=== PATIENT | female | born 1995 | race Caucasian/White ===

== ENCOUNTER 2017-10-07 15:41 | Inpatient (IN) | payer BC ==
[2017-10-07] MEDS ORDERED: Sodium Chloride 0.9% 10 ML Syringe FLUSH PRN (15:58)
[2017-10-07] MEDS ORDERED: Ondansetron 4 MG Tab.DIS PO PRN (15:58)
[2017-10-07] MEDS ORDERED: Nalbuphine 20 MG/1 ML Amp IVPUSH PRN (15:58)
[2017-10-07] MEDS ORDERED: Oxytocin/Lactated Ringers 10 UNIT/1,000 ML BAG IV SCH (16:00)
[2017-10-07] MEDS ORDERED: Lactated Ringers 1,000 ML IV SCH (16:00)
--- NOTE | 2017-10-07 16:48 | PCM.SN ---
- Free Text/Narrative Note: Sergio is a 22-year-old 2 now para 2002 white female who was admitted on 10/07/2017 in a very active, precipitous labor. She has an ANGELINA of 10/24/2017 by early ultrasound and LMP. She very rapidly went to complete cervical dilation and delivered almost immediately after spontaneous rupture of membranes at 1613 hrs.. Delivered a viable, carrion, 3010 g (6 lbs. 10 oz.), 19 inches long female in a right occiput anterior position, over an intact perineum. The baby was placed on mom's abdomen and nose and mouth bulb suctioned. The cord was allowed to pulsate with delayed cord clamping. The cord was then clamped 2 by myself and was cut by the baby's grandmother. Cord blood was obtained. Pitocin was started to facilitate increase in uterine tone and decrease risk of bleeding. Evaluation of the perineum revealed no significant lacerations and no suturing was required. The placenta delivered at 1618 hrs. in a Bergman fashion, appeared intact and complete and was discarded per patient desire. Estimated blood loss was 100 mL. Patient plans to bottle feed. Condition: Good
[2017-10-07] MEDS ORDERED: Lanolin 100% Cream 7 GM Tube TOP PRN (16:52)
[2017-10-07] MEDS ORDERED: Benzocaine/Menthol 20%-0.5% Spray 56 GM Canister TOP PRN (16:52)
[2017-10-07] MEDS ORDERED: Witch Hazel Medicated Pads 100/Jar TOP PRN (16:52)
[2017-10-07] MEDS ORDERED: Acetaminophen 325 MG Tab PO PRN (16:52)
[2017-10-07] MEDS: Ibuprofen 600 MG Tab PO PRN ×2 (17:12→21:12)
[2017-10-08] MEDS: Ibuprofen 600 MG Tab PO PRN ×4 (03:31→17:16)
--- NOTE | 2017-10-08 07:17 | PCM.SN ---
- Free Text/Narrative Note: note: Patient is doing well in the period. Minimal lochia, voiding well, ambulated without problems. Nursing without concerns. Patient is afebrile, vital signs are stable Abdomen is flat, soft, uterus is below the umbilicus and is firm and nontender. Legs are nontender. Assessment: recovery going well. Plan: Routine care. Patient be discharged home within the next 24- 48 hours.
[2017-10-08] MEDS: Docusate Sodium 100 MG Cap PO PRN (12:11)
[2017-10-09] MEDS: Ibuprofen 600 MG Tab PO PRN (00:09)
[2017-10-09] MEDS: Docusate Sodium 100 MG Cap PO PRN (00:24)
--- NOTE | 2017-10-09 05:15 | PCM.DCSUM1 ---
Discharge Summary - Hospital Course Free Text/Narrative:: Sergio is a 22-year-old 2 now para 2002 white female who was admitted on 10/07/2017 in a very active, precipitous labor. She has an ANGELINA of 10/24/2017 by early ultrasound and LMP. She very rapidly went to complete cervical dilation and delivered almost immediately after spontaneous rupture of membranes at 1613 hrs.. Delivered a viable, carrion, 3010 g (6 lbs. 10 oz.), 19 inches long female in a right occiput anterior position, over an intact perineum. The baby was placed on mom's abdomen and nose and mouth bulb suctioned. The cord was allowed to pulsate with delayed cord clamping. The cord was then clamped 2 by myself and was cut by the baby's grandmother. Cord blood was obtained. Pitocin was started to facilitate increase in uterine tone and decrease risk of bleeding. Evaluation of the perineum revealed no significant lacerations and no suturing was required. The placenta delivered at 1618 hrs. in a Bergman fashion, appeared intact and complete and was discarded per patient desire. Estimated blood loss was 100 mL. Patient plans to bottle feed. patient is doing well. She is ambulating well. Voiding without concerns and has minimal lochia. She is bottle feeding. He is desiring discharge home. - Discharge Data Discharge Date: 10/09/17 Discharge Disposition: Home, Self-Care 01 Condition: Good - Patient Instructions Diet: Regular Diet as Tolerated Activity: As Tolerated (No intercourse or tampons until bleeding resolves) Driving: May Drive Today Showering/Bathing: May Shower (May take a bath) Notify Provider of: Fever, Increased Pain, Swelling and Redness, Nausea and/or Vomiting - Discharge Plan Home Medications: Home Meds Acetaminophen [Tylenol] 650 mg PO Q6H PRN #50 tablet 07/24/15 [Rx] Benzocaine/Menthol [Dermoplast Pain Relief [place]] 1 spray TOP ASDIRECTED PRN #1 canister 07/24/15 [Rx] Docusate Sodium [Colace] 100 mg PO BID PRN #50 cap 07/24/15 [Rx] Ibuprofen [Motrin] 200 - 600 mg PO Q6H PRN #50 tablet 07/24/15 [Rx] Witch Ana Laura [Tucks] 1 pad TOP ASDIRECTED PRN #50 pad 07/24/15 [Rx] - Discharge Summary/Plan Comment DC Time >30 min.: No Discharge Summary/Plan Comment: Discharge instructions: 1. Discharge home 2. Diet, activity and follow-up discussed with patient. Recommend nursing diet with increased calories and calcium. 3. Precautions given concern increased pain, bleeding, temperature, signs/ symptoms of DVT/PE. 4. Medications per home medication was printed, discussed with and given to the patient. 5. Return to clinic-[facility] in 2 weeks. Diagnosis: Term -delivered Condition: Good - Patient Data Vitals - Most Recent: Last Vital Signs Temp 36.6 C 10/09/17 04:21 Pulse 69 10/09/17 04:21 Resp 16 10/09/17 04:21 BP 105/64 10/09/17 04:21 Pulse Ox 100 10/09/17 04:21 Weight - Most Recent: 77.564 kg I&O - Last 24 hours: Intake & Output 10/08/17 10/08/17 10/09/17 14:59 22:59 06:59 Intake Total 120 Balance 120 Lab Results - Last 24 hrs: Laboratory Results - last 24 hr 10/08/17 Range/Units 06:05 WBC 10.48 H (3.98-10.04) K/mm3 RBC 3.81 L (3.98-5.22) M/mm3 Hgb 12.4 (11.2-15.7) gm/L Hct 36.4 (34.1-44.9) % MCV 95.5 H (79.4-94.8) fl MCH 32.5 H (25.6-32.2) pg MCHC 34.1 (32.2-35.5) g/dl RDW Std Deviation 43.0 (36.4-46.3) fL Plt Count 153 L (182-369) K/mm3 MPV 11.0 (9.4-12.3) fl Med Orders - Current: Current Medications Acetaminophen (Tylenol) 650 mg PO Q4H PRN PRN Reason: mild pain or fever Benzocaine/Menthol (Dermoplast Pain Relief [place]) 0 gm TOP ASDIRECTED PRN PRN Reason: Perineal Comfort Measure Last Admin: 10/07/17 17:12 Dose: 1 applic Docusate Sodium (Colace) 100 mg PO BID PRN PRN Reason: Constipation Last Admin: 10/09/17 00:24 Dose: 100 mg Emollient Ointment (Lansinoh Hpa) 0 gm TOP ASDIRECTED PRN PRN Reason: Sore Nipples Ibuprofen (Motrin) 600 mg PO Q4H PRN PRN Reason: Mild pain or fever Last Admin: 10/09/17 00:09 Dose: 600 mg Witch Ana Laura (Tucks) 1 pad TOP ASDIRECTED PRN PRN Reason: Hemorrhoid pain Last Admin: 10/07/17 17:12 Dose: 1 applic Discontinued Medications Lactated Ringer's (Ringers, Lactated) 1,000 mls @ 100 mls/hr IV ASDIRECTED LAURIE Oxytocin/Lactated Ringer's (Pitocin In Lr 10 Units/1,000 Ml) 10 unit in 1,000 mls @ 100 mls/hr IV .CONTINUOUS LAURIE; Protocol Last Admin: 10/07/17 16:15 Dose: 500 mls/hr Nalbuphine HCl (Nubain) 10 mg IVPUSH Q2H PRN PRN Reason: Pain (moderate 4-6) Ondansetron HCl (Zofran Odt) 4 mg PO Q4H PRN PRN Reason: Nausea/Vomiting Sodium Chloride (Saline Flush) 10 ml FLUSH ASDIRECTED PRN PRN Reason: Keep Vein Open
[2017-10-09 10:31] VITALS: BP 109/67
--- NOTE | 2017-10-10 08:48 | HP ---
DATE OF ADMISSION: 10/07/2017 ADMISSION DIAGNOSIS: A 37 and 4/7th week intrauterine , precipitous labor, spontaneous rupture of membranes, precipitous delivery. HISTORY OF PRESENT ILLNESS: The patient is a 22-year-old 2, now para 2-0-0-2 white female, who is evaluated after delivery of the baby. She came in less than 30 minutes ago, was found to be 5 cm dilated. She spontaneously ruptured membranes with resultant clear amniotic fluid. She then within the course of 10 minutes precipitously progressed to complete cervical dilation and to delivery. She delivered a viable female infant. 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 She has had 3 ultrasounds since that time, supportive of dates and these ultrasounds were done on 06/13/2017, 07/11/2017, and 10/06/2017. She is a 2, para 1-0-0-1. Previous delivered on 07/22/2015 at 37 and 3/7 weeks gestational age after 4 hours of labor. A 5 pounds 15 ounces female born via normal spontaneous vaginal delivery at [facility]. That baby's name is Asher. The patient had menarche at age 10, cycles q.28 days. No control at time of conception. Certain last menstrual period was 01/18/2017. Her course was relatively unremarkable. The patient was evaluated yesterday for elevated heart rate, but biophysical profile was 8/8. She has declined flu shot. Her [place] depression screen was 3 on a scale of 30. Group B strep screen was negative. She lives in [place], [place]. The patient's Tdap was given on 09/28/2017. COURSE: Included regular visits starting with a first visit at 11 weeks gestational age on 04/04/2017. Her weight gain was from 149.2 up to 174 pounds for approximately a 25 pounds weight gain. Her vital signs remained stable throughout the course and her fundal height growth was appropriate. LABS: Included a blood type of A positive, antibody screen is negative. First hemoglobin was 13.7 and platelets were 187,000. She is rubella immune. RPR is nonreactive. First urine culture was unremarkable. Hepatitis B surface antigen HIV assays were both negative. Chlamydia and gonorrhea assays both negative. Second trimester labs showed hemoglobin of 13.5 and a platelet count of 153,000. Her 1-hour GTT was normal at 110. Group B strep screen was negative. ALLERGIES: None. CURRENT MEDICATIONS: vitamins. PAST MEDICAL HISTORY: Normal spontaneous vaginal delivery 2015. PAST SURGICAL HISTORY: Unremarkable. FAMILY HISTORY: Unremarkable. Parents are alive and well. No problems with bleeding, anesthesia, asthma, or . SOCIAL HISTORY: The patient is , is Ramón Santillan. 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 REVIEW OF SYSTEMS: GENERAL: The patient had only the complaint of contractions. Doing well otherwise. SKIN: Negative. CARDIOVASCULAR: No chest pain or exercise intolerance. RESPIRATORY: No shortness of breath or infectious symptoms. BREASTS: No problems noted. Changes associated . The patient plans to bottle feed. GI: Negative. : Changes associated including increased fundal height. MUSCULOSKELETAL: Negative. NEUROLOGIC: Negative. PHYSICAL EXAMINATION: GENERAL: The patient is a well-developed, well-nourished, pleasant female, stated age, in no acute distress. She is having contractions, but exam done after the labor was over and delivery had occurred, showed the patient to be calm and well collected. She is a good historian. VITAL SIGNS: Her weight gain was from 149.2 up to 174 pounds for 25 pounds weight gain. Her height is 5 feet 7 inches. Prepregnancy body mass index is 22.7 and last blood pressure in clinic was 126/72. heart rate at that time was normal and biophysical profile was 8/8. SKIN: Warm, dry, without lesions. HEENT, NECK, and BACK: Within normal limits. LUNGS: Clear with good breath sounds in all lung adhikari. CARDIOVASCULAR: Shows regular rate and rhythm without murmurs. BREASTS: Deferred, having been done previously, found to be normal. ABDOMEN: Protuberant with with fundal height consistent with 37 week . : Cervical exam showed complete cervical dilation. Baby ready to deliver upon my arrival in Labor and Delivery. EXTREMITIES: Grossly within normal limits. NEUROLOGICAL: Grossly within normal limits. ASSESSMENT: 1. A 37 and 4/7th week intrauterine , precipitous labor and delivery with viable female . 2. The patient plans to bottle feed. 3. Group B strep screen was negative. 4. Rubella titer shows immunity. PLAN: 1. Routine care. The patient is receiving Pitocin IV at this time. 2. Analgesia with ibuprofen and acetaminophen. 3. Comfort measures relative to her perineum. MMODAL /[id number]
== END 2017-10-09 10:10 | disposition home or self-care (01) | DRG 560 ==
LOC: JD.OB 15:41 → JD.OBCHECK 15:41 → JD.OB 15:58 → OBSVTOIN 16:13 → JD.OB 16:14
PROVIDERS: ADMIT Obstetrics & Gynecology; ATTEND Obstetrics & Gynecology
PROC: 10E0XZZ Delivery of Products of Conception, External Approach (ICD-10-PCS; principal; 2017-10-07)
PROC: 6A550ZT Pheresis of Cord Blood Stem Cells, Single (ICD-10-PCS; 2017-10-07)
DX: O62.3 Precipitate labor (principal); Z3A.37 37 weeks gestation of pregnancy; Z37.0 Single live birth
CPT/HCPCS: 36415; 59409; 85027; A9270-GY; J2590